=== PATIENT | female | born 1965 | race Caucasian/White ===

== ENCOUNTER 2017-07-17 08:45 | Day surgery (SDC) | payer BC ==
[~2017-07-17 08:45] MED LIST: RINGER'S SOLUTION,LACTATED 1,000 ML IV PRN
--- NOTE | 2017-07-17 12:14 | OR ---
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 A flexile fiberoptic video colonoscope was introduced and advanced under direct vision without difficulty to the cecum. The usual landmarks were identified. Preparation was excellent and excellent views were obtained. The findings were of a normal cecum, ascending colon, hepatic flexure, transverse colon, splenic flexure, descending colon, sigmoid colon with the exception of a few scattered diverticuli, rectum, and retroflex view. the mucosal color, vasculature and texture were normal throughout. No suspicious masses were seen. The patient tolerated the procedure well without apparent complications and was discharged from the endoscopy suite in stable condition.
[2017-07-17 13:10] VITALS: BP 156/85
== END 2017-07-17 08:46 | disposition home or self-care (01) ==
LOC: AMB 08:45
PROVIDERS: ATTEND Specialist
PROC: 0DJD8ZZ Inspection of Lower Intestinal Tract, Via Natural or Artificial Opening Endoscopic (ICD-10-PCS; principal; 2017-07-17 10:30)
DX: Z12.11 Encounter for screening for malignant neoplasm of colon (principal); K57.30 Diverticulosis of large intestine without perforation or abscess without bleeding; E03.9 Hypothyroidism, unspecified; J45.20 Mild intermittent asthma, uncomplicated; Z68.43 Body mass index [BMI] 50.0-59.9, adult

== ENCOUNTER 2020-12-07 15:28 | Inpatient (IN) ==
[2020-12-07] MEDS ORDERED: ALBUTEROL SULFATE/IPRATROPIUM 3 ML NEBU IH ONE (16:04)
--- NOTE | 2020-12-07 16:12 | ERNOTE ---
Dyspnea - Date Date of Service: 12/07/20 - General Presenting Symptoms: difficulty of breathing Time Seen by Provider: 12/07/20 15:40 Source: patient Exam Limitations: clinical condition - Immun/Allergies/Home Medications Immunizations: IMMUNIZATION HX Immunizations Up to Date Yes Allergies/Adverse Reactions: Allergies cefdinir Allergy (Intermediate, Verified 08/13/20 09:55) FACIAL SWELLING, WELTS adhesive tape Adverse Reaction (Mild, Verified 08/13/20 09:55) blisters with transpore Home Medications: HOME MEDICATIONS Fexofenadine HCl [Elisabet Allergy] 180 mg PO DAILY 07/14/17 [Last Taken Unknown] Multivit-Min/Iron/Folic/Lutein [Centrum Silver Women Tablet] 1 ea PO DAILY 07/14/17 [Last Taken Unknown] albuterol sulfate 90 mcg/actuation aerosol inhaler 1 inh IH Q6H PRN #18 g 02/22/19 [Last Taken Unknown] acetaminophen 650 mg tablet,extended release 650 mg PO Q8H PRN 07/04/20 [Last Taken Unknown] levothyroxine 112 mcg tablet See Rx Instructions .ROUTE .COMPLEX #30 unknown measurement unit code: tablet 10/22/20 [Last Taken Unknown] metoprolol succinate 100 mg tablet,extended release 24 hr 100 mg PO DAILY #90 tab 11/12/20 [Last Taken Unknown] - History of Present Illness Narrative: Patient presents to the ED for SOB. She hs been sick for approx 3 days. She has been coughing, can't get anything up. No COVID testing done. Worse with movement and cough and exertion. No specific CP. No new calf pain or leg swelling. Hard time laying flat. She caught a "cold" last week but hadn't really had SOB until 3 days ago. 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 Initiating event: Reports: upper resp illness Frequency of episodes: Reports: no prior episodes Modifying Factors - (Improves): Reports: nothing Modifying Factors (Worsens): Reports: activity Associated Symptoms-Dyspnea: Denies: fever/chills, ankle/leg swelling, weakness Prior Treatment: Denies: currently on antibiotics Review of Systems - Review of Systems Constitutional: Present: recent illness EYE: Present: no symptoms reported ENT: Present: no symptoms reported Respiratory: Present: See HPI Cardiology: Present: See HPI Gastrointestinal/Abdominal: Absent: abdominal pain Genitourinary: Absent: dysuria All Other Systems: All systems neg except as marked Medical History (Last Reviewed 12/07/20 @ 16:11 by Patric Huang MD) Hypothyroidism (Acute) Hypertension (Acute) Asthma (Acute) Surgical History: Surgical History (Last Reviewed 12/07/20 @ 16:11 by Patric Huang MD) History of tonsillectomy History of tubal ligation History of appendectomy Onset Date: ~1972 History of colonoscopy Onset Date: 07/17/17 History of dilation and curettage Onset Date: 11/26/18 History of hysteroscopy Onset Date: 11/26/18 History of nasal surgery Onset Date: ~2005 Family History: Family History (Last Reviewed 12/07/20 @ 16:11 by Patric Huang MD) Father Hypertension Myocardial infarction Mother Hypertension Diabetes Social History: (Last Reviewed 12/07/20 @ 16:11 by Patric Huang MD) Social History: Marital status: lives independently: Yes number of children: 2 Service: No Tobacco: Smoking Status: Never smoker Alcohol: alcohol intake: never Substance Use: substance use type: does not use Dietary Habits: caffeine: Yes Physical Exam - Physical Exam General Appearance: Present: alert, moderate distress, other - tachypnea, coughi ng Head Exam: Present: normal inspection, no evidence of injury Eye Exam: Normal inspection: bilateral, PERRL: bilateral Ears, Nose, Throat: Present: normal ENT inspection Neck: Present: normal inspection Respiratory: Present: other - moderate tachypnea. No active wheezing hard, diminished bilaterally. Absent: wheezing Cardiovascular/Chest: Present: regular rate, rhythm, normal peripheral pulses Gastrointestinal/Abdominal: Present: normal bowel sounds, nontender, soft Back Exam: Present: normal range of motion Extremity Exam: Present: other - no overt DVT findings Neurological Exam: Present: alert, no motor/sensory deficits Skin Exam: Present: normal color, warm/dry Progress - Results and Orders Patient's Lab Results:: I have reviewed the patient's lab results. - Vital Signs Patient's Vital Signs:: I have reviewed the patient's vital signs. Vital Signs: Vital Signs 12/07/20 15:28 12/07/20 15:49 Temperature 37.1 C Pulse Rate 92 Respiratory Rate 22 H Blood Pressure 144/64 H O2 Sat by Pulse Oximetry 88 L 98 - EKG EKG #1 EKG read: Interp. by me EKG Comments: Sinus tachycardia rate 100. S1Q3T3 pattern. Non-specific ST/T wave changes, no STMEI noted. - X-Ray X-Ray #1 X-Ray: chest Interpretation: Interp. by me X-ray Comments: No real time radiology reads. Exam C/W Covid pneumonia. I personally reviewed CXR image, portable. - Progress/Reassessment Chief Complaint: Dyspnea Progress Note-Subjective: 12/07/20 18:09 Patient has covid pneumonia, hypoxia, Bipap for respiratory distress helped significantly. Given elevated d-dimer Lovenox given. IV Decadron given. D/W Dr Jauregui who will admit the patient to the hospital. Departure Clinical Impression: SOB (shortness of breath), Pneumonia due to COVID-19 virus, Hypoxia - Departure Disposition: Still a patient Condition: Fair
[2020-12-07 16:34] LABS: Hematocrit 48.6 % (37.0-47.0); Hemoglobin 15.7 gm/dL (12.5-16.0); Mean Cell Volume 91.5 fl (78-100); Mean Corpuscular Hemoglobin 29.6 pg (27-31); Mean Corpuscular Hgb Conc 32.3 g/dl (32-36); Mean Platelet Volume 12.3 fl (8-12.5); Platelet Count 102 K/mm3 (150-450); Red Blood Count 5.31 M/mm3 (4.2-5.4); Red Cell Distribution Width 13.1 % (11.5-14.0); White Blood Count 4.4 K/mm3 (4.0-10.5)
[2020-12-07 16:37] LABS: Total Cells Counted 100
[2020-12-07 16:56] LABS: ALT 60 U/L (19-67); AST 79 U/L (0-48); Albumin * 3.6 gm/dl (3.4-5.0); Alkaline Phosphatase * 123 U/L (50-170); Anion Gap 11.8 mmol/L (6.8-13.8); BNP * 38 pg/mL (5-205); BUN/Creatinine Ratio 10.5 (9.0-21.6); Bilirubin, Total 0.7 mg/dL (0.0-1.1); Blood Urea Nitrogen 11 mg/dL (3-23); Ca. Corrected For Albumin 9.7 mg/dL (8.4-10.2); Calcium * 9.7 mg/dL (7.9-10.9); Carbon Dioxide 26.9 mmol/L (24-32.6); Chloride 100 mmol/L (97-106); Glucose * 109 mg/dL (70-110); Potassium 3.7 mmol/L (3.4-4.6); Sodium 135 mmol/L (132-142); Total Protein 7.8 gm/dL (6.2-8.2); Troponin I Less than 0.017 ng/mL (0.00-0.10)
[2020-12-07] MEDS ORDERED: LORazepam 2 MG/ML DISP.SYRIN IV ONE (16:58)
[2020-12-07 17:16] LABS: Atypical (Reactive) Lymph 8 % (0-2); Band 11 % (0-2.0); Lymphocyte 10 % (20-51); Monocyte 8 % (0-9); Neutrophil 63 % (42-75); Neutrophil # 2.8 K/mm3 (1.3-6.0)
[2020-12-07 17:20] LABS: Platelet Estimate Normal (NORMAL); RBC Morphology Normal (NORMAL)
[2020-12-07] MEDS ORDERED: DEXAMETHASONE SODIUM PHOSP/PF 10 MG/ML VIAL IV ONE (17:43)
[2020-12-07] MEDS ORDERED: ENOXAPARIN SODIUM 100 MG/ML SYRG SC SCH (18:15)
[2020-12-07] MEDS ORDERED: ENOXAPARIN SODIUM 40 MG/0.4 ML SYRG SC ONE (18:21)
[2020-12-07] MEDS ORDERED: ENOXAPARIN SODIUM 100 MG/ML SYRG SC STA (18:24)
--- NOTE | 2020-12-07 20:33 | HP ---
Chief Complaint - Chief Complaint Date of Service: 12/07/20 Time of Service: 08:15 Chief Complaint: SOB History of Present Illness: Patient with PMHx of asthma, MELA, morbid obesity with BMI of 60, hypothyroidism presented to the ED today after not being able to catch her breath. She had cold symptoms last week, and has had a cough. COVID positive here. She has had some diarrhea the last couple of days. She denies fever, CP, loss of taste or smell. She had a previous surgical procedure for sleep apnea, and no longer uses any mask at night. Initially, her oxygen saturation was 88% and she was dyspneic, so she was placed on a Bipap. ABG show mild hypoxemia, with pO2 of 63.9 with normal pH of 7.43. CXR reads mild pulmonary edema vs multilobar pneumonia. D dimer slightly high at 0.92. Medical History (Last Updated 12/07/20 @ 19:31 by Lindsay Tariq RN) Hypothyroidism (Chronic) Hypertension (Chronic) Asthma (Chronic) Arthritis Surgical History: Surgical History (Last Reviewed 12/07/20 @ 16:11 by Patric Huang MD) History of tonsillectomy History of tubal ligation History of appendectomy Onset Date: ~1972 History of colonoscopy Onset Date: 07/17/17 History of dilation and curettage Onset Date: 11/26/18 History of hysteroscopy Onset Date: 11/26/18 History of nasal surgery Onset Date: ~2005 Family History: Family History (Last Reviewed 12/07/20 @ 16:11 by Patric Huang MD) Father Hypertension Myocardial infarction Mother Hypertension Diabetes Social History: (Last Reviewed 12/07/20 @ 16:11 by Patric Huang MD) Social History: Marital status: lives independently: Yes number of children: 2 Service: No Tobacco: Smoking Status: Never smoker Alcohol: alcohol intake: never Substance Use: substance use type: does not use Dietary Habits: caffeine: Yes Review Of Systems (GEN) - Review of Systems Generalized/Overall Review: Absent: Fever Respiratory: Present: Cough, Shortness of Breath Cardiac: Absent: Chest Pain, Edema Abdominal: Present: Diarrhea - stool incontinence with coughing the last few days, Other - decreased appetite. Absent: Vomiting Genitourinary: Present: Incontinent - with coughing for the last few days Musculoskeletal: Present: No Symptoms Reported Neurological: Present: No Symptoms Reported Skin: Present: No Symptoms Reported Immunizations: IMMUNIZATION HX Immunizations Up to Date Yes Allergies/Adverse Reactions: Allergies Allergy/AdvReac Type Severity Reaction Status Date / Time cefdinir Allergy Intermediate FACIAL Verified 08/13/20 09:55 SWELLING, WELTS adhesive tape AdvReac Mild blisters Verified 08/13/20 09:55 Home Medications: HOME MEDICATIONS Fexofenadine HCl [Elisabet Allergy] 180 mg PO DAILY 07/14/17 [Last Taken Unknown] Multivit-Min/Iron/Folic/Lutein [Centrum Silver Women Tablet] 1 ea PO HS 07/14/17 [Last Taken Unknown] albuterol sulfate 90 mcg/actuation aerosol inhaler 1 inh IH Q6H PRN #18 g 02/22/19 [Last Taken Unknown] acetaminophen 650 mg tablet,extended release 650 mg PO Q8H PRN 07/04/20 [Last Taken Unknown] levothyroxine 112 mcg tablet See Rx Instructions .ROUTE .COMPLEX #30 unknown measurement unit code: tablet 10/22/20 [Last Taken Unknown] metoprolol succinate 100 mg tablet,extended release 24 hr 100 mg PO DAILY #90 tab 11/12/20 [Last Taken Unknown] Exam - Exam Vital Signs: Vital Signs - Last Taken Temp 36.9 C 12/07/20 19: Pulse 100 12/07/20 19: Resp 44 H 12/07/20 19: BP 156/71 H 12/07/20 19:21 Pulse Ox 94 12/07/20 19:21 Constitutional: Present: Alert, Cooperative, Other - appeared uncomfortable with Bipap, more comfortable with Hiflow, Morbidly obese Respiratory: Present: lungs clear, No rales, No wheezing, other - tachypnea, RR around 30 Cardiovascular/Chest: Present: regular rate, rhythm Abdomen: Present: soft, nontender Extremity: Absent: lower extremity edema Neurologic: Present: normal mood/affect Eye contact: Present: good eye contact Diagnostic Studies: Abnormal Lab Results 12/07/20 12/07/20 12/07/20 Range/Units 16:10 16:18 16:18 Hct 48.6 H (37.0-47.0) % Plt Count 102 L (150-450) K/mm3 Band Neuts % (Manual) 11 H (0-2.0) % Lymphocytes % (Manual) 10 L (20-51) % Lymphocytes # (Manual) 0.4 L (1.5-3.5) k/mm3 Atypic/Reactive Lymphs 8 H (0-2) % D-Dimer (0.19-0.49) ug/mL pO2 (83.0-108.0) mmHg ABG O2 Sat (Measured) (94.0-98.0) % Est GFR (Non-Af Amer) 57 L (60-130) mL/min AST 79 H (0-48) U/L SARS-CoV-2 (PCR) Detected H (NotDetected) 12/07/20 12/07/20 Range/Units 16:18 16:52 Hct (37.0-47.0) % Plt Count (150-450) K/mm3 Band Neuts % (Manual) (0-2.0) % Lymphocytes % (Manual) (20-51) % Lymphocytes # (Manual) (1.5-3.5) k/mm3 Atypic/Reactive Lymphs (0-2) % D-Dimer 0.92 H (0.19-0.49) ug/mL pO2 63.9 L (83.0-108.0) mmHg ABG O2 Sat (Measured) 93.2 L (94.0-98.0) % Est GFR (Non-Af Amer) (60-130) mL/min AST (0-48) U/L SARS-CoV-2 (PCR) (NotDetected) Laboratory Results WBC 4.4 K/mm3 (4.0-10.5) 12/07/20 16:18 RBC 5.31 M/mm3 (4.2-5.4) 12/07/20 16:18 Hgb 15.7 gm/dL (12.5-16.0) 12/07/20 16:18 Hct 48.6 % (37.0-47.0) H 12/07/20 16:18 MCV 91.5 fl (78-100) 12/07/20 16:18 MCH 29.6 pg (27-31) 12/07/20 16:18 MCHC 32.3 g/dl (32-36) 12/07/20 16:18 RDW 13.1 % (11.5-14.0) 12/07/20 16:18 Plt Count 102 K/mm3 (150-450) L 12/07/20 16:18 MPV 12.3 fl (8-12.5) 12/07/20 16:18 Neutrophils % (Manual) 63 % (42-75) 12/07/20 16:18 Band Neuts % (Manual) 11 % (0-2.0) H 12/07/20 16:18 Lymphocytes % (Manual) 10 % (20-51) L 12/07/20 16:18 Monocytes % (Manual) 8 % (0-9) 12/07/20 16:18 Neutrophils # (Manual) 2.8 K/mm3 (1.3-6.0) 12/07/20 16:18 Lymphocytes # (Manual) 0.4 k/mm3 (1.5-3.5) L 12/07/20 16:18 Monocytes # (Manual) 0.4 k/mm3 (0.0-1.0) 12/07/20 16:18 Atypic/Reactive Lymphs 8 % (0-2) H 12/07/20 16:18 Toxic Vacuolation Trace 12/07/20 16:18 Platelet Estimate Normal (NORMAL) 12/07/20 16:18 RBC Morphology Normal (NORMAL) 12/07/20 16:18 D-Dimer 0.92 ug/mL (0.19-0.49) H 12/07/20 16:18 pCO2 33.1 mmHg (32.0-45.0) 12/07/20 16:52 pO2 63.9 mmHg (83.0-108.0) L 12/07/20 16:52 HCO3 21.6 mmol/L (21.0-28.0) 12/07/20 16:52 Total CO2 22.6 mmol/L (19.0-24.0) 12/07/20 16:52 Base Excess -1.7 mmol/L (-2.0-3.0) 12/07/20 16:52 ABG pH 7.43 (7.35-7.45) 12/07/20 16:52 ABG O2 Sat (Measured) 93.2 % (94.0-98.0) L 12/07/20 16:52 Sodium 135 mmol/L (132-142) 12/07/20 16:18 Plasma Sodium 135 mmol/L (130-142) 12/07/20 16:18 Potassium 3.7 mmol/L (3.4-4.6) 12/07/20 16:18 Chloride 100 mmol/L (97-106) 12/07/20 16:18 Carbon Dioxide 26.9 mmol/L (24-32.6) 12/07/20 16:18 Anion Gap 11.8 mmol/L (6.8-13.8) 12/07/20 16:18 BUN 11 mg/dL (3-23) 12/07/20 16:18 Creatinine 1.05 mg/dL (0.4-1.4) 12/07/20 16:18 Est GFR (Non-Af Amer) 57 mL/min (60-130) L 12/07/20 16:18 BUN/Creatinine Ratio 10.5 (9.0-21.6) 12/07/20 16:18 Random Glucose 109 mg/dL (70-110) 12/07/20 16:18 Calcium 9.7 mg/dL (7.9-10.9) 12/07/20 16:18 Calcium Adj for Albumin 9.7 mg/dL (8.4-10.2) 12/07/20 16:18 Total Bilirubin 0.7 mg/dL (0.0-1.1) 12/07/20 16:18 AST 79 U/L (0-48) H 12/07/20 16:18 ALT 60 U/L (19-67) 12/07/20 16:18 Alkaline Phosphatase 123 U/L (50-170) 12/07/20 16:18 Troponin I Less than 0.017 ng/mL (0.00-0.10) 12/07/20 16:18 B-Natriuretic Peptide 38 pg/mL (5-205) 12/07/20 16:18 Total Protein 7.8 gm/dL (6.2-8.2) 12/07/20 16:18 Albumin 3.6 gm/dl (3.4-5.0) 12/07/20 16:18 Procalcitonin 0.10 ng/mL (0.05-0.50) 12/07/20 16:18 SARS-CoV-2 (PCR) Detected (NotDetected) H 12/07/20 16:10 Assessment/Plan - Assessment/Plan (1) Pneumonia due to COVID-19 virus Assessment: She was dyspneic, so Bipap was placed, however she felt like that machine was drowning her with air. She was switched to hiflow NC, 8L, and was more comfortable. She is oxygenating in the low 90's currently. RR is around 30, BP slightly high. She was given 10 mg decadron in the ED. Continue bid lovenox for prophylaxis. She had cold symptoms last week, so she is not in the remdesivir window. She does not have crackles, so will not administer lasix at this time. However, if unable to wean from O2, will give lasix. She does not have rhonchi either, so will not yet start abx. She's been afebrile, and has an allergy to cefdinir. Starting an antibiotic runs the risk of an allergic r eaction. COVID itself would explain her presentation, and additional treatment may not be necessary. Anticipate hospital stay of at least 2 midnights. Problem: Acute (2) Acute hypoxemic respiratory failure due to COVID-19 Problem: Acute (3) Hypertension Assessment: slightly high. resume home metoprolol. Problem: Chronic (4) Elevated d-dimer Assessment: Her Wells score is 1.5. Her only positive indicator is heart rate greater than 100. A wells score of 1.5 is low risk, and PE is unlikely. Problem: Acute (5) Asthma Problem: Chronic (6) Hypothyroidism Problem: Chronic (7) Morbid obesity with BMI of 60.0-69.9, adult Problem: Chronic (8) Sleep apnea Assessment: She had a surgical procedure for sleep apnea, and no longer uses a mask. She reports having had difficulties wearing masks in the past. Her history of sleep apnea, asthma, and BMI of 60 can be exacerbating her COVID symptoms. Problem: Chronic
[2020-12-08] MEDS: DEXTROMETHORPHAN POLISTIREX SUS.ER.12H PO PRN ×2 (00:38→12:38)
[2020-12-08] MEDS: BENZONATATE 100 MG CAPSULE PO PRN ×4 (00:38→18:48)
[2020-12-08] MEDS: ENOXAPARIN SODIUM 40 MG/0.4 ML SYRG SC SCH ×2 (06:30→18:47)
[2020-12-08] MEDS ORDERED: ACETAMINOPHEN 325 MG TABLET PO PRN (07:03)
[2020-12-08] MEDS: DEXAMETHASONE 2 MG TABLET PO SCH (08:06)
[2020-12-08] MEDS: METOPROLOL SUCCINATE 100 MG TABLET.SA PO SCH (08:06)
--- NOTE | 2020-12-08 10:15 | PN ---
Subjective - Date and Time Seen Date: 12/08/20 Time: 11:00 Subjective Narrative: Patient feels much better than she did yesterday. She is oxygenating in the low 90s on 8 L via high flow nasal cannula. She is able to tolerate fluids. She does have a significant cough, improved with the cough medicines overnight. Otherwise no new concerns. Objective - Review of Systems Generalized/Overall Review: Denies: Fever Respiratory: Reports: Cough, Shortness of Breath Cardiac: Denies: Edema Abdominal: Denies: Vomiting Genitourinary Symptoms: Reports: No Symptoms Reported - Vitals Vitals: Last Vital Signs Temp 37.1 C 12/08/20 05:26 Pulse 76 12/08/20 08:06 Resp 28 H 12/08/20 05:26 BP 140/86 H 12/08/20 08:06 Pulse Ox 91 L 12/08/20 08:15 - Abnormal Lab Findings Abnormal Lab Findings: Abnormal Lab Results 12/07/20 12/07/20 12/07/20 Range/Units 16:10 16:18 16:18 Hct 48.6 H (37.0-47.0) % Plt Count 102 L (150-450) K/mm3 Band Neuts % (Manual) 11 H (0-2.0) % Lymphocytes % (Manual) 10 L (20-51) % Lymphocytes # (Manual) 0.4 L (1.5-3.5) k/mm3 Atypic/Reactive Lymphs 8 H (0-2) % D-Dimer (0.19-0.49) ug/mL pO2 (83.0-108.0) mmHg ABG O2 Sat (Measured) (94.0-98.0) % Est GFR (Non-Af Amer) 57 L (60-130) mL/min AST 79 H (0-48) U/L SARS-CoV-2 (PCR) Detected H (NotDetected) 12/07/20 12/07/20 Range/Units 16:18 16:52 Hct (37.0-47.0) % Plt Count (150-450) K/mm3 Band Neuts % (Manual) (0-2.0) % Lymphocytes % (Manual) (20-51) % Lymphocytes # (Manual) (1.5-3.5) k/mm3 Atypic/Reactive Lymphs (0-2) % D-Dimer 0.92 H (0.19-0.49) ug/mL pO2 63.9 L (83.0-108.0) mmHg ABG O2 Sat (Measured) 93.2 L (94.0-98.0) % Est GFR (Non-Af Amer) (60-130) mL/min AST (0-48) U/L SARS-CoV-2 (PCR) (NotDetected) - Exam Constitutional: Present: Alert, Cooperative, No distress, Morbidly obese Respiratory: Present: no respiratory distress, decreased breath sounds, No wheezing, other - Using 8 L via high flow nasal cannula Cardiovascular/Chest: Present: regular rate, rhythm Abdomen: Present: soft, nontender, obese Extremity: Absent: lower extremity edema Eye contact: Present: cooperative, good eye contact Assessment/Plan Plan Narrative: Her oxygen requirement is the same as it was on admission yesterday evening, though she is far more comfortable. Will wean as tolerated. She has not been febrile, and is overall improving, so will not add Lasix or antibiotics. Continue 6 mg daily Decadron. Continue prophylactic Lovenox. Her cough is be tter with Delsym and Tessalon Perles, and will continue. Anticipate discharge in greater than 48 hours. - Problems/Diagnosis (1) Pneumonia due to COVID-19 virus Problem: Acute (2) Acute hypoxemic respiratory failure due to COVID-19 Problem: Acute (3) Hypertension Problem: Chronic (4) Elevated d-dimer Problem: Acute (5) Asthma Problem: Chronic (6) Hypothyroidism Problem: Chronic (7) Morbid obesity with BMI of 60.0-69.9, adult Problem: Chronic (8) Sleep apnea Problem: Chronic
[2020-12-09] MEDS: DEXTROMETHORPHAN POLISTIREX SUS.ER.12H PO PRN ×2 (02:03→22:26)
[2020-12-09] MEDS: ENOXAPARIN SODIUM 40 MG/0.4 ML SYRG SC SCH ×2 (06:42→18:45)
[2020-12-09] MEDS: BENZONATATE 100 MG CAPSULE PO PRN (08:16)
[2020-12-09] MEDS: DEXAMETHASONE 2 MG TABLET PO SCH (08:16)
[2020-12-09] MEDS: METOPROLOL SUCCINATE 100 MG TABLET.SA PO SCH (08:16)
[2020-12-09 08:31] LABS: Hemoglobin 14.9 gm/dL (12.5-16.0); Mean Cell Volume 92.4 fl (78-100); Mean Corpuscular Hemoglobin 29.9 pg (27-31); Mean Corpuscular Hgb Conc 32.4 g/dl (32-36); Mean Platelet Volume 12.4 fl (8-12.5); Neutrophil # 7.3 K/mm3 (1.3-6.0); Neutrophil % 82.8 % (42-75.0); Platelet Count 151 K/mm3 (150-450); Red Blood Count 4.98 M/mm3 (4.2-5.4); Red Cell Distribution Width 13.2 % (11.5-14.0); White Blood Count 8.9 K/mm3 (4.0-10.5)
[2020-12-09 08:51] LABS: Albumin * 3.2 gm/dl (3.4-5.0); Anion Gap 12.7 mmol/L (6.8-13.8); Bilirubin, Total 0.7 mg/dL (0.0-1.1); Ca. Corrected For Albumin 10.2 mg/dL (8.4-10.2); Calcium * 9.9 mg/dL (7.9-10.9); Carbon Dioxide 25.4 mmol/L (24-32.6); Potassium 4.1 mmol/L (3.4-4.6); Total Protein 6.9 gm/dL (6.2-8.2)
--- NOTE | 2020-12-09 12:33 | PN ---
Subjective - Date and Time Seen Date: 12/09/20 Time: 12:10 Subjective Narrative: She feels like she can take in a deeper breath than she was able to yesterday. Her cough is brought on by activity, but seems to be getting better. Still has not regained much of an appetite. Oxygen requirements similar to yesterday and she has been unable to wean. Objective - Review of Systems Generalized/Overall Review: Denies: Fever Respiratory: Reports: Cough, Shortness of Breath Cardiac: Denies: Chest Pain, Edema Abdominal: Reports: Other - Decreased appetite Genitourinary Symptoms: Reports: No Symptoms Reported - Vitals Vitals: Last Vital Signs Temp 36.5 C 12/09/20 10: Pulse 64 12/09/20 10:22 Resp 27 H 12/09/20 10:22 BP 133/74 12/09/20 10:22 Pulse Ox 90 L 12/09/20 10:22 - Abnormal Lab Findings Abnormal Lab Findings: Abnormal Lab Results 12/09/20 12/09/20 Range/Units 08:24 08:24 Immature Gran % (Auto) 0.60 H (0.001-0.429) % Immature Gran # (Auto) 0.05 H (0.000-0.0310) K/mm3 Neutrophils % 82.8 H (42-75.0) % Lymphocytes % 8.8 L (20-51) % Neutrophils # 7.3 H (1.3-6.0) K/mm3 Lymphocytes # 0.78 L (1.5-3.5) k/mm3 Random Glucose 113 H (70-110) mg/dL AST 110 H (0-48) U/L ALT 91 H (19-67) U/L Albumin 3.2 L (3.4-5.0) gm/dl - Exam Constitutional: Present: Alert, Morbidly obese Respiratory: Present: no respiratory distress, No rales, No wheezing, other - Oxygenating at 92% on 8 L via nasal cannula, tachypnea with respiratory rate at 30 Cardiovascular/Chest: Present: regular rate, rhythm Abdomen: Present: soft, obese Extremity: Absent: lower extremity edema Eye contact: Present: cooperative, good eye contact Assessment/Plan Plan Narrative: Today is day 3 of hospitalization for Covid pneumonia. Her oxygen requirement is the same as yesterday at 8 L via nasal cannula. An attempt was made to decrease, but she desaturated to the upper 80s. She subjectively reports being able to take in deeper breaths and improvement in her cough. We will continue daily Decadron and twice daily Lovenox. She did not present within the remdesivir window. White blood cell count not elevated, and her GFR recovered since admission. Anticipate at least an additional 2 midnights for this hospitalization, since her oxygen requirement is still substantial. With her history of asthma and BMI of greater than 60, her Covid course may be prolonged. - Problems/Diagnosis (1) Pneumonia due to COVID-19 virus Problem: Acute (2) Acute hypoxemic respiratory failure due to COVID-19 Problem: Acute (3) Hypertension Problem: Chronic (4) Elevated d-dimer Problem: Acute Narrative: Low Wells score makes PE unlikely. (5) Asthma Problem: Chronic (6) Hypothyroidism Problem: Chronic (7) Morbid obesity with BMI of 60.0-69.9, adult Problem: Chronic (8) Sleep apnea Problem: Chronic
[2020-12-09] MEDS: LEVOTHYROXINE SODIUM 112 MCG TABLET PO SCH (12:49)
[2020-12-09] MEDS: LORATADINE 10 MG TABLET PO SCH (12:49)
[2020-12-10] MEDS: ENOXAPARIN SODIUM 40 MG/0.4 ML SYRG SC SCH ×2 (07:18→18:05)
[2020-12-10] MEDS: METOPROLOL SUCCINATE 100 MG TABLET.SA PO SCH (08:17)
[2020-12-10] MEDS: LORATADINE 10 MG TABLET PO SCH (08:17)
[2020-12-10] MEDS: DEXAMETHASONE 2 MG TABLET PO SCH (08:18)
[2020-12-10] MEDS: LEVOTHYROXINE SODIUM 112 MCG TABLET PO SCH (08:18)
[2020-12-10] MEDS ORDERED: FUROSEMIDE 10 MG/ML VIAL IV ONE (14:08)
[2020-12-10] MEDS ORDERED: ALBUTEROL SULFATE 200 PUFF INHALER IH PRN (14:27)
--- NOTE | 2020-12-10 14:35 | PN ---
Subjective - Date and Time Seen Date: 12/10/20 Time: 10:00 Subjective Narrative: Patient reports continued improvement in her breathing, though she is still using 8 L via nasal cannula. She is having some urinary incontinence. No other new concerns. Objective - Review of Systems Generalized/Overall Review: Denies: Fever Respiratory: Reports: Cough, Shortness of Breath Cardiac: Denies: Chest Pain, Edema Abdominal: Reports: No Symptoms Reported Genitourinary Symptoms: Reports: Incontinent - Vitals Vitals: Last Vital Signs Temp 36.7 C 12/10/20 10:57 Pulse 68 12/10/20 10:57 Resp 20 12/10/20 10:57 BP 146/76 H 12/10/20 10:57 Pulse Ox 91 L 12/10/20 10:57 - Exam Constitutional: Present: Alert, No distress, Morbidly obese Respiratory: Present: wheezing, other - oxygenating at 92% on 9L via hiflow NC Cardiovascular/Chest: Present: regular rate, rhythm Extremity: Absent: lower extremity edema Eye contact: Present: good eye contact Assessment/Plan Plan Narrative: Today is hospitalization day 4. Her oxygen requirement is the same today as it was when she got to the floor. She does report feeling better however. Will administer a dose of Lasix to see if this helps her oxygen requirements. Continue daily decadron. She has MELA at baseline, and anticipate there is an element of pickwickian syndrome complicating her recovery. Will also restart her ventolin inhaler. Anticipate DC in greater than 48 hours. - Problems/Diagnosis (1) Pneumonia due to COVID-19 virus Problem: Acute (2) Acute hypoxemic respiratory failure due to COVID-19 Problem: Acute (3) Hypertension Problem: Chronic (4) Asthma Problem: Chronic (5) Hypothyroidism Problem: Chronic (6) Morbid obesity with BMI of 60.0-69.9, adult Problem: Chronic (7) Sleep apnea Problem: Chronic
[2020-12-10] MEDS: DEXTROMETHORPHAN POLISTIREX SUS.ER.12H PO PRN (21:43)
[2020-12-11] MEDS: ENOXAPARIN SODIUM 40 MG/0.4 ML SYRG SC SCH ×2 (07:48→18:58)
[2020-12-11] MEDS: LEVOTHYROXINE SODIUM 112 MCG TABLET PO SCH (08:12)
[2020-12-11] MEDS: METOPROLOL SUCCINATE 100 MG TABLET.SA PO SCH (08:12)
[2020-12-11] MEDS: DEXAMETHASONE 2 MG TABLET PO SCH (08:12)
[2020-12-11] MEDS: LORATADINE 10 MG TABLET PO SCH (08:12)
--- NOTE | 2020-12-11 08:24 | PN ---
Subjective - Date and Time Seen Date: 12/11/20 Time: 08:23 Subjective Narrative: She feels like the lasix may have helped. Her breathing is minimally better, but still using 8L via NC. Labs ordered, but unable to obtain this morning. Objective - Review of Systems Generalized/Overall Review: Denies: Fever Respiratory: Reports: Cough, Shortness of Breath Cardiac: Denies: Chest Pain, Edema Abdominal: Reports: No Symptoms Reported Genitourinary Symptoms: Reports: Incontinent - Vitals Vitals: Last Vital Signs Temp 36.7 C 12/11/20 08:00 Pulse 63 12/11/20 08:12 Resp 22 H 12/11/20 08:00 BP 147/88 H 12/11/20 08:12 Pulse Ox 94 12/11/20 08:00 - Exam Constitutional: Present: Alert, Cooperative, No distress, Morbidly obese Respiratory: Present: normal breath sounds, other - using 8L via hiflow NC. Absent: wheezing Cardiovascular/Chest: Present: regular rate, rhythm Extremity: Absent: lower extremity edema Eye contact: Present: cooperative, good eye contact Assessment/Plan Plan Narrative: Today is day 5 of admission. She had a cold the week prior to admission, so symptom onset is felt to be approximately 2 weeks ago. Her oxygen requirements are not improving, but she subjectively feels better. CXR obtained this morning shows improvement in her infiltrates. Continue decadron. Since she is improving, I do not feel like she has a secondary bacterial infection, so will not add antibiotics. If she declines, however, abx will be added. will again administer IV lasix today. continue home inhaler. I feel like her prolonged course is due to her asthma and body habitus. Hospitalization will be at least 2 additional midnights. - Problems/Diagnosis (1) Pneumonia due to COVID-19 virus Problem: Acute (2) Acute hypoxemic respiratory failure due to COVID-19 Problem: Acute (3) Hypertension Problem: Chronic (4) Asthma Problem: Chronic (5) Hypothyroidism Problem: Chronic (6) Morbid obesity with BMI of 60.0-69.9, adult Problem: Chronic (7) Sleep apnea Problem: Chronic
[2020-12-11] MEDS ORDERED: FUROSEMIDE 10 MG/ML VIAL IV ONE (09:00)
[2020-12-11] MEDS: DEXTROMETHORPHAN POLISTIREX SUS.ER.12H PO PRN ×2 (10:57→23:31)
[2020-12-11 11:02] LABS: Hematocrit 50.9 % (37.0-47.0); Hemoglobin 16.2 gm/dL (12.5-16.0); Mean Cell Volume 91.7 fl (78-100); Mean Corpuscular Hemoglobin 29.2 pg (27-31); Mean Corpuscular Hgb Conc 31.8 g/dl (32-36); Platelet Count 192 K/mm3 (150-450); Red Blood Count 5.55 M/mm3 (4.2-5.4); White Blood Count 5.8 K/mm3 (4.0-10.5)
[2020-12-11 11:04] LABS: Total Cells Counted 100
[2020-12-11 11:25] LABS: Albumin * 3.2 gm/dl (3.4-5.0); Anion Gap 12.3 mmol/L (6.8-13.8); BUN/Creatinine Ratio 22.4 (9.0-21.6); Bilirubin, Total 0.8 mg/dL (0.0-1.1); Ca. Corrected For Albumin 10.5 mg/dL (8.4-10.2); Calcium * 10.2 mg/dL (7.9-10.9); Carbon Dioxide 28.3 mmol/L (24-32.6); Potassium 3.6 mmol/L (3.4-4.6); Total Protein 7.6 gm/dL (6.2-8.2)
[2020-12-11 11:32] LABS: Atypical (Reactive) Lymph 4 % (0-2); Lymphocyte 19 % (20-51); Monocyte 8 % (0-9); Neutrophil 69 % (42-75)
[2020-12-11 11:33] LABS: Platelet Estimate Normal (NORMAL); RBC Morphology Normal (NORMAL)
[2020-12-12] MEDS: ENOXAPARIN SODIUM 40 MG/0.4 ML SYRG SC SCH ×2 (07:14→19:05)
[2020-12-12] MEDS: METOPROLOL SUCCINATE 100 MG TABLET.SA PO SCH (08:49)
[2020-12-12] MEDS: DEXAMETHASONE 2 MG TABLET PO SCH (08:49)
[2020-12-12] MEDS: LEVOTHYROXINE SODIUM 112 MCG TABLET PO SCH (08:49)
[2020-12-12] MEDS: LORATADINE 10 MG TABLET PO SCH (08:49)
--- NOTE | 2020-12-12 22:00 | PN ---
Subjective - Date and Time Seen Date: 12/12/20 Time: 12:48 Subjective Narrative: Patient is comfortable, sitting in her chair eating lunch. She states that her breathing is starting to feel better but she is still requiring 8 L high flow O2 via NC. She does cough when she takes a deep breath. She has been afebrile. She denies abdominal pain, N/V, swelling in her legs. She is not using a cornet. Objective - Review of Systems Generalized/Overall Review: Denies: Weakness, Chills, Fever EENTM: Reports: No Symptoms Reported Respiratory: Reports: Cough, Shortness of Breath Cardiac: Reports: No Symptoms Reported Abdominal: Denies: Nausea, Vomiting, Abdominal Pain, Constipation Genitourinary Symptoms: Reports: No Symptoms Reported Musculoskeletal Complaints: Reports: No Symptoms Reported Neurological: Reports: No Symptoms Reported Skin: Reports: No Symptoms Reported Endocrine: Reports: No Symptoms Reported - Vitals Vitals: Last Vital Signs Temp 36.5 C 12/12/20 18:00 Pulse 62 12/12/20 18:00 Resp 19 12/12/20 18:00 BP 128/76 12/12/20 18:00 Pulse Ox 96 12/12/20 18:00 - Exam Constitutional: Present: Alert, Oriented x3, Cooperative, Morbidly obese ENT Exam: Present: hearing grossly normal Respiratory: Present: no respiratory distress, decreased breath sounds - due to boldy habitus. Absent: crackles, wheezing Cardiovascular/Chest: Present: regular rate, rhythm, no murmur Abdomen: Present: soft, nontender, nondistended Skin Exam: Present: normal color, warm/dry Neurologic: Present: alert, normal mood/affect, oriented x 3 Appearance: Present: appropriate appearance, appropriate insight Eye contact: Present: cooperative, good eye contact Thoughts: Present: normal thought pattern, normal mood /affect Assessment/Plan Plan Narrative: Day 6 of admission. She states that her breathing is getting easier though she cough with deep breath. Still needs 8L hfo. She is on decadron, lovenox. Her cough is nonproductive. Aside from o2 requirement, patient's vss. No need for abx at this time. WIll start her on a christelle. Continue IV lasix. Continue other chronic meds. Will wean o2 as tolerated. - Problems/Diagnosis (1) SOB (shortness of breath) Problem: Acute (2) Pneumonia due to COVID-19 virus Problem: Acute (3) Hypoxia Problem: Acute (4) Acute hypoxemic respiratory failure due to COVID-19 Problem: Acute (5) Morbid obesity with BMI of 60.0-69.9, adult Problem: Chronic (6) Hypertension Problem: Chronic (7) Asthma Problem: Chronic
[2020-12-13] MEDS: DEXTROMETHORPHAN POLISTIREX SUS.ER.12H PO PRN ×2 (00:10→23:23)
[2020-12-13] MEDS: LORATADINE 10 MG TABLET PO SCH (08:24)
[2020-12-13] MEDS: DEXAMETHASONE 2 MG TABLET PO SCH (08:24)
[2020-12-13] MEDS: LEVOTHYROXINE SODIUM 112 MCG TABLET PO SCH (08:24)
[2020-12-13] MEDS: ENOXAPARIN SODIUM 40 MG/0.4 ML SYRG SC SCH ×2 (08:24→18:46)
[2020-12-13] MEDS: METOPROLOL SUCCINATE 100 MG TABLET.SA PO SCH (08:24)
--- NOTE | 2020-12-13 21:38 | PN ---
Subjective - Date and Time Seen Date: 12/13/20 Time: 09:28 Subjective Narrative: Patient is feeling better today, breathing easier. Using her christelle. O2 requirement down for the first time. COugh imrpoving. VItals stable Objective - Review of Systems Generalized/Overall Review: Denies: Weakness, Chills, Fever EENTM: Reports: No Symptoms Reported Respiratory: Reports: Cough, Shortness of Breath Cardiac: Reports: No Symptoms Reported Abdominal: Denies: Nausea, Vomiting, Abdominal Pain, Constipation Genitourinary Symptoms: Reports: No Symptoms Reported Musculoskeletal Complaints: Reports: No Symptoms Reported Skin: Reports: No Symptoms Reported - Vitals Vitals: Last Vital Signs Temp 37.1 C 12/13/20 20:56 Pulse 71 12/13/20 20:56 Resp 24 H 12/13/20 20:56 BP 128/75 12/13/20 20:56 Pulse Ox 95 12/13/20 20:56 - Exam Constitutional: Present: Alert, Oriented x3, Morbidly obese Respiratory: Present: lungs clear, decreased breath sounds - due to body habitus. Absent: crackles, rales, rhonchi, wheezing Cardiovascular/Chest: Present: regular rate, rhythm, no murmur Abdomen: Present: soft, nontender, nondistended Skin Exam: Present: normal color, warm/dry Appearance: Present: appropriate appearance, appropriate insight Eye contact: Present: cooperative, good eye contact Assessment/Plan Plan Narrative: Overall patients clinical picture is improving. She is down to 6 L HFO which is the lowest she has required since admission. COntinue o2 as needed, wean as tolerated. Continue Decadron. Continue lovenox for DVT ppx. Continue christelle. Other chronic conditions stable, no changes needed. VSS. Nurse to call with questions or concerns - Problems/Diagnosis (1) SOB (shortness of breath) Problem: Acute (2) Pneumonia due to COVID-19 virus Problem: Acute (3) Hypoxia Problem: Acute (4) Acute hypoxemic respiratory failure due to COVID-19 Problem: Acute (5) Morbid obesity with BMI of 60.0-69.9, adult Problem: Chronic (6) Hypertension Problem: Chronic (7) Asthma Problem: Chronic
[2020-12-14] MEDS: ENOXAPARIN SODIUM 40 MG/0.4 ML SYRG SC SCH (07:15)
[2020-12-14 07:35] LABS: Albumin * 2.9 gm/dl (3.4-5.0); Anion Gap 9.6 mmol/L (6.8-13.8); BUN/Creatinine Ratio 25.3 (9.0-21.6); Bilirubin, Total 0.6 mg/dL (0.0-1.1); Ca. Corrected For Albumin 9.9 mg/dL (8.4-10.2); Calcium * 9.3 mg/dL (7.9-10.9); Carbon Dioxide 29.2 mmol/L (24-32.6); Potassium 3.8 mmol/L (3.4-4.6); Total Protein 6.5 gm/dL (6.2-8.2)
--- NOTE | 2020-12-14 08:41 | PN ---
Subjective - Date and Time Seen Date: 12/14/20 Time: 08:15 Subjective Narrative: Patient reports feeling a lot better. Is using 2 L via NC. Hasn't had a BM, but doesn't feel uncomfortable. Objective - Review of Systems Generalized/Overall Review: Denies: Fever Respiratory: Reports: Cough, Shortness of Breath Cardiac: Denies: Chest Pain, Edema Abdominal: Reports: Constipation Genitourinary Symptoms: Denies: Retention, Dysuria Skin: Reports: No Symptoms Reported - Vitals Vitals: Last Vital Signs Temp 36.3 C 12/14/20 06:49 Pulse 60 12/14/20 06:49 Resp 21 H 12/14/20 06:49 BP 132/78 12/14/20 06:49 Pulse Ox 96 12/14/20 06:49 - Abnormal Lab Findings Abnormal Lab Findings: Abnormal Lab Results 12/14/20 Range/Units 07:19 Chloride 107 H (97-106) mmol/L BUN 24 H (3-23) mg/dL BUN/Creatinine Ratio 25.3 H (9.0-21.6) AST 72 H (0-48) U/L ALT 286 H (19-67) U/L Albumin 2.9 L (3.4-5.0) gm/dl - Exam Constitutional: Present: Alert, Cooperative, No distress, Morbidly obese Respiratory: Present: normal breath sounds, other - frequent dry cough Cardiovascular/Chest: Present: regular rate, rhythm Abdomen: Present: nontender Extremity: Absent: lower extremity edema Eye contact: Present: cooperative, good eye contact Assessment/Plan Plan Narrative: Today is day #8 of hospitalization for COVID pneumonia. She had cold symptoms the week prior to admission, so she may be a couple of weeks into her symptoms. She required 8L via hiflow NC for several days, until yesterday. Lasix is being given daily. She is feeling much better, but is having a bit of a prolonged course. Likely due to her baseline asthma and obesity. There is probably an element of pickwickian syndrome complicating her recovery. She is still tachyp neic, but her oxygen requirements have improved to the point she may be able to discharge home with oxygen in the next 24-48 hours. I would like her RR to be around 20 before DC. Will see if she is willing to pay the @ $26 for the pulse ox, and schedule her for a phone visit with her PCP, Dr. Ross, early next week. - Problems/Diagnosis (1) Pneumonia due to COVID-19 virus Problem: Acute (2) Acute hypoxemic respiratory failure due to COVID-19 Problem: Resolved (3) Hypertension Problem: Chronic (4) Asthma Problem: Chronic (5) Hypothyroidism Problem: Chronic (6) Morbid obesity with BMI of 60.0-69.9, adult Problem: Chronic (7) Sleep apnea Problem: Chronic
[2020-12-14] MEDS: METOPROLOL SUCCINATE 100 MG TABLET.SA PO SCH (09:37)
[2020-12-14] MEDS: DEXAMETHASONE 2 MG TABLET PO SCH (09:37)
[2020-12-14] MEDS: LORATADINE 10 MG TABLET PO SCH (09:38)
[2020-12-14] MEDS: LEVOTHYROXINE SODIUM 112 MCG TABLET PO SCH (09:38)
--- NOTE | 2020-12-14 14:39 | DS ---
(1) Pneumonia due to COVID-19 virus Problem: Acute (2) Acute hypoxemic respiratory failure due to COVID-19 Problem: Resolved (3) Hypertension Problem: Chronic (4) Asthma Problem: Chronic (5) Hypothyroidism Problem: Chronic (6) Morbid obesity with BMI of 60.0-69.9, adult Problem: Chronic (7) Sleep apnea Problem: Chronic Date of Discharge:: 12/14/20 Hospital Course: Today is day #8 of hospitalization for COVID pneumonia. She had cold symptoms the week prior to admission, so she may be a couple of weeks into her symptoms. She required 8L via hiflow NC for several days, until 12/13/20. Lasix is being given daily, as well as decadron. She is feeling much better, but is having a bit of a prolonged course, likely due to her baseline asthma and obesity. There is probably an element of pickwickian syndrome complicating her recovery. On the day of DC, she was able to oxygenate on room air, and felt comfortable going home. She was able to shower and ambulate around her room, and oxygen stayed greater than 90%. Will DC home, to have close phone follow up with her PCP, Dr. Ross. She was given a pulse ox for home use. She will be send home with anthony hammond for her cough, which she felt was helpful. To be conservative, can consider her positive COVID test to be day #1 of her infectious period. This would have her quarantine through 12/20/20. However, since she had cold symptoms the week prior to admission, she probably was COVID positive much earlier than admission. Since she's been afebrile and is feeling better, she may be out of the 14 day quarantine period. Procedures Performed: none Results and Findings: Lab Pending Results 12/07/20 16:10: SARS-CoV-2 (PCR) Detected H 12/07/20 16:18: Procalcitonin 0.10 12/07/20 16:18: WBC 4.4, RBC 5.31, Hgb 15.7, Hct 48.6 H, MCV 91.5, MCH 29.6, MCHC 32.3, RDW 13.1, Plt Count 102 L, MPV 12.3, Neutrophils % (Manual) 63, Band Neuts % (Manual) 11 H, Lymphocytes % (Manual) 10 L, Monocytes % (Manual) 8, Neutrophils # (Manual) 2.8, Lymphocytes # (Manual) 0.4 L, Monocytes # (Manual) 0.4, Atypic/Reactive Lymphs 8 H, Toxic Vacuolation Trace, Platelet Estimate Normal, RBC Morphology Normal 12/07/20 16:18: Sodium 135, Plasma Sodium 135, Potassium 3.7, Chloride 100, Carbon Dioxide 26.9, Anion Gap 11.8, BUN 11, Creatinine 1.05, Est GFR (Non-Af Amer) 57 L, BUN/Creatinine Ratio 10.5, Random Glucose 109, Calcium 9.7, Calcium Adj for Albumin 9.7, Total Bilirubin 0.7, AST 79 H, ALT 60, Alkaline Phosphatase 123, Troponin I Less than 0.017, B-Natriuretic Peptide 38, Total Protein 7.8, Albumin 3.6 12/07/20 16:18: D-Dimer 0.92 H 12/07/20 16:52: pCO2 33.1, pO2 63.9 L, HCO3 21.6, Total CO2 22.6, Base Excess - 1.7, ABG pH 7.43, ABG O2 Sat (Measured) 93.2 L 12/09/20 08:24: WBC 8.9 D, RBC 4.98, Hgb 14.9, Hct 46.0, MCV 92.4, MCH 29.9, MCHC 32.4, RDW 13.2, Plt Count 151, MPV 12.4, Immature Gran % (Auto) 0.60 H, Immature Gran # (Auto) 0.05 H, Neutrophils % 82.8 H, Lymphocytes % 8.8 L, Monocytes % 7.7, Eosinophils % 0.0, Basophils % 0.1, Nucleated RBC % 0.0, Neutrophils # 7.3 H, Lymphocytes # 0.78 L, Monocytes # 0.7, Eosinophils # 0.0, Absolute Basophils 0.0 12/09/20 08:24: Sodium 137, Plasma Sodium 137, Potassium 4.1, Chloride 103, Carbon Dioxide 25.4, Anion Gap 12.7, BUN 15, Creatinine 0.79, Est GFR (Non-Af Amer) 80 D, BUN/Creatinine Ratio 19.0, Random Glucose 113 H, Calcium 9.9, Calcium Adj for Albumin 10.2, Total Bilirubin 0.7, AST 110 H, ALT 91 H, Alkaline Phosphatase 130, Total Protein 6.9, Albumin 3.2 L 12/11/20 10:54: WBC 5.8 D, RBC 5.55 H, Hgb 16.2 H, Hct 50.9 H, MCV 91.7, MCH 29.2, MCHC 31.8 L, RDW 13.0, Plt Count 192, MPV 12.0, Neutrophils % (Manual) 69, Lymphocytes % (Manual) 19 L, Monocytes % (Manual) 8, Neutrophils # (Manual) 4.0, Lymphocytes # (Manual) 1.1 L, Monocytes # (Manual) 0.5, Atypic/Reactive Lymphs 4 H, Platelet Estimate Normal, RBC Morphology Normal 12/11/20 10:54: Sodium 143 H, Plasma Sodium 143 H, Potassium 3.6, Chloride 106, Carbon Dioxide 28.3, Anion Gap 12.3, BUN 22, Creatinine 0.98, Est GFR (Non-Af Amer) 62 D, BUN/Creatinine Ratio 22.4 H, Random Glucose 109, Calcium 10.2, Calcium Adj for Albumin 10.5 H, Total Bilirubin 0.8, AST 190 H, ALT 286 H, Alkaline Phosphatase 149, Total Protein 7.6, Albumin 3.2 L 12/14/20 07:19: Sodium 142, Plasma Sodium 142, Potassium 3.8, Chloride 107 H, Carbon Dioxide 29.2, Anion Gap 9.6, BUN 24 H, Creatinine 0.95, Est GFR (Non-Af Amer) 64, BUN/Creatinine Ratio 25.3 H, Random Glucose 99, Calcium 9.3, Calcium Adj for Albumin 9.9, Total Bilirubin 0.6, AST 72 H, ALT 286 H, Alkaline Phosphatase 105, Total Protein 6.5, Albumin 2.9 L Discharge Location: Home Disposition: Home self-care Condition: Fair Discharge Activity: Activity as tolerated Discharge Diet: General/regular food Referrals: Gissell Ross MD [Primary Care Provider] - 12/17/20 Additional Patient Instructions (free text): COVID home treatment plan at discharge- TCM schedule video visits beginning Thursday12/17/[address] Ross at 3:00pm video call. Prescriptions (Any new or edited meds): Dextromethorphan Polistirex [Delsym] 5 ml PO Q12H PRN #1 bottle PRN Reason: Cough Transmission Status: Pending to [id number] Benzonatate [Tessalon] 100 mg PO Q4H PRN #20 cap PRN Reason: Cough Transmission Status: Pending to [id number] Complete Home Medications List: Complete Home Medication List: Fexofenadine HCl [Elisabet Allergy] 180 mg PO DAILY 07/14/17 Multivit-Min/Iron/Folic/Lutein [Centrum Silver Women Tablet] 1 ea PO HS 07/14/17 albuterol sulfate 90 mcg/actuation aerosol inhaler 1 inh IH Q6H PRN #18 g 02/22/19 acetaminophen 650 mg tablet,extended release 650 mg PO Q8H PRN 07/04/20 levothyroxine 112 mcg tablet See Rx Instructions .ROUTE .COMPLEX #30 unknown measurement unit code: tablet 10/22/20 metoprolol succinate 100 mg tablet,extended release 24 hr 100 mg PO DAILY #90 tab 11/12/20 Benzonatate [Tessalon] 100 mg PO Q4H PRN #20 cap 12/14/20 Dextromethorphan Polistirex [Delsym] 5 ml PO Q12H PRN #1 bottle 12/14/20 Forms: Patient Portal Registration
[2020-12-14 16:00] VITALS: BP 130/76
== END 2020-12-14 16:02 | disposition home or self-care (01) | DRG 177 ==
LOC: SCU 15:28 → ER 15:28 → OBSVTOIN 17:52 → SCU 18:55 → MS 12-11 16:28
PROVIDERS: ADMIT Family Medicine; ATTEND Family Medicine